=== PATIENT | female | born 1960 | race Caucasian/White ===

== ENCOUNTER 2021-01-19 15:54 | Inpatient (IN) | payer OTHER ==
[~2021-01-19] VITALS: Ht 162.6 cm; Wt 82.6 kg
--- NOTE | ~2021-01-19 | CON ---
[facility] [address] [place] [address] CONSULTATION Name: CYRUS AMEZCUA Room: [address] IN M.R.#: [id number] Admission: 01/19/21 Attend Phys: Rahul Walsh MD Discharge: Date of : 56 Report #: [id number] THIS REPORT FOR: cc: AKI DC MD, CHADWICK MD Khosla, Parveen K. MD ~ DATE OF CONSULTATION: 01/19/2021 HISTORY OF PRESENT ILLNESS: A 61-year-old female patient who presented with a code stroke. She had a sudden onset of the right upper and right lower extremity weakness. She came to Emergency Room and after talking to her about the indication, potential complication and alternatives of tPA, the emergency room physician started the patient on tPA. CT scan was negative and as I understand from him, there was no contraindication for tPA. When I saw this patient, she said she was already trying to improve some, but she was still significantly weak on the right side. Her sensation was intact. REVIEW OF SYSTEMS: Somewhat confusing because she has a history of hypertension. She takes her blood pressure, but she is not sure how controlled her blood pressure is. She does take metformin; she takes Depakote and Remeron, but apparently that is because of anxiety and depression. She does not feel she was depressed here. A 14-point review of systems was carried out, but except for diabetes, hypertension, anxiety and depression, it was unremarkable. PAST MEDICAL HISTORY: Positive for hypertension. FAMILY HISTORY: Unremarkable. SOCIAL HISTORY: She smokes. She does not drink alcohol on a regular basis. PHYSICAL EXAMINATION: NEUROLOGICAL: She was alert and responsive. Her speech was intact. She thinks her memory is at her baseline. Cranial nerve examination 2-12 I believe was unremarkable. I did not see any facial palsy. She was definitely weak in the right upper and right lower extremity. She was able to move it against resistance, but she was weak. Her sensation looks intact and reflexes look symmetrical. There is no carotid bruit in this patient. CARDIORESPIRATORY: Unremarkable. VITAL SIGNS: Blood pressure is 151/79, temperature 97.2, pulse 91, respirations 17. LABORATORY DATA: White count is 6.8. IMPRESSION: This patient's symptoms were suggestive of possible small vessel cerebrovascular accident. I discussed with the [place] [address] CONSULTATION Name: CYRUS AMEZCUA Room: [address]#: [id number] Admission: 01/19/21 Attend Phys: Rahul Walsh MD Discharge: Date of : 56 Report #: [id number] presumptive at the moment. She has already been explained the indication, potential complication and alternatives. I reviewed her imaging studies and subsequently we got a CT angiogram done and they were basically unremarkable. We will get an MRI done tomorrow. She has shown no evidence of any hemorrhage. I discussed with her in detail the plan. More than 50 minutes of time was spent taking care of this patient today and majority was spent counseling and coordinating, reviewing her imaging studies and records. By: 02 Psheila Gregorio MD /nt
[2021-01-19 16:07] LABS: ABSOLUTE BASOPHILS 0.1 thou/uL (0.0-0.2); ABSOLUTE EOSINOPHILS 0.1 thou/uL (0.0-0.7); ABSOLUTE LYMPHOCYTES 2.7 thou/uL (0.8-5.3); ABSOLUTE MONOCYTES 0.7 thou/uL (0.0-1.2); ABSOLUTE NEUTROPHILS 3.3 thou/uL (1.6-8.1); BASOPHILS 1.1 %; EOSINOPHILS 1.3 %; HEMATOCRIT 38.9 % (37.0-47.0); HEMOGLOBIN 13.5 gm/dL (12.0-15.0); LYMPHOCYTES 39.1 %; MCH 33.3 pg (26.0-34.0); MCHC 34.7 g/dL (28.0-37.0); MCV 95.9 fL (80.0-100.0); MONOCYTES 10.6 %; MPV 7.6 fl. (7.2-11.1); NUCLEATED RBCS 0 /100WBC; PLATELET COUNT* 247 thou/uL (150-400); POLYS 47.9 %; RBC 4.05 mil/uL (4.20-5.00); RDW-CV 14.9 % (10.5-14.5); WBC 6.8 thou/uL (4.0-11.0)
[2021-01-19 16:18] LABS: CALCIUM 8.8 mg/dL (8.5-10.1); POTASSIUM 3.3 mmol/L (3.5-5.1)
[2021-01-19 16:24] LABS: ALBUMIN 2.7 g/dL (3.4-5.0); TOTAL BILIRUBIN 0.3 mg/dL (<0.1-1.0); TOTAL PROTEIN 6.2 g/dL (6.4-8.2)
[2021-01-19 16:41] VITALS: BP 142/81
[2021-01-19] MEDS ORDERED: METFORMIN HCL500 M3 PO (16:44)
[2021-01-19] MEDS ORDERED: DIVALPROEX SOD500 MG PO (16:45)
--- NOTE | 2021-01-19 16:45 | EKG ---
[place] [address] ELECTROCARDIOGRAM REPORT Name: CYRUS AMEZCUA Room: [place] [address] ADM IN .R.#: [id number] Admission: 01/19/21 Attend Phys: Rahul Walsh, Discharge: Date of : 56 Date of Service: 01/19/21 1617 Report #: [id number] THIS REPORT FOR: //name// [facility] ED Test Date: 2021-01-19 Test Time: 16:17:20 Pat Name: CYRUS AMEZCUA Department: Room: [facility] Gender: F Cath Lab Radiological Technologist: NICCI : 1960 Requested By: Emil Horne Order Number: [id number] MD: Eugenio Judd Measurements Intervals [place] Rate: 87 P: 36 RI: 122 QRS: 28 QRSD: 85 T: 18 QT: 397 QTc: 478 Interpretive Statements Sinus rhythm Low voltage, extremity leads Borderline prolonged QT interval No previous ECG available for comparison Electronically Signed On 01-19-2021 16:45:33 CDT by Eugenio Judd [email or web address] <ELECTRONICALLY SIGNED> By: Eugenio Judd MD, FACC 01/19/21 1645 1617 1617 Eugenio Judd MD, FAC /EPI
[2021-01-19] MEDS ORDERED: MINIPRESS2 MG PO (16:46)
[2021-01-19] MEDS ORDERED: OLANZAPINE15 MG PO (16:46)
[2021-01-19] MEDS ORDERED: REMERON15 M2 PO (16:46)
[2021-01-19] MEDS ORDERED: HYDROXYZINE PAM50 MG PO (16:46)
--- NOTE | 2021-01-19 16:56 | NUR ---
SEE CODE STROKE FLOWSHEET AND IV TPA FLOW SHEET FOR FURTHER DOCUMENTATION
[2021-01-19 18:06] VITALS: BP 151/79
[2021-01-19] MEDS ORDERED: LISINOPRIL20 MG PO (21:15)
[2021-01-19] MEDS ORDERED: PRAVACHOL 20 MG20 M1 PO (21:17)
[2021-01-19] MEDS ORDERED: ZOLOFT50 M1 PO (21:21)
[2021-01-19] MEDS ORDERED: PROAIR HFA8.5 GM INH (21:23)
[2021-01-20] VITALS (20 sets, daily range): BP systolic 131–172; BP diastolic 55–141
[2021-01-20 03:27] LABS: ABSOLUTE EOSINOPHILS 0.1 thou/uL (0.0-0.7); ABSOLUTE LYMPHOCYTES 2.3 thou/uL (0.8-5.3); ABSOLUTE MONOCYTES 0.7 thou/uL (0.0-1.2); ABSOLUTE NEUTROPHILS 3.4 thou/uL (1.6-8.1); BASOPHILS 0.5 %; EOSINOPHILS 1.1 %; HEMATOCRIT 33.9 % (37.0-47.0); HEMOGLOBIN 11.6 gm/dL (12.0-15.0); LYMPHOCYTES 35.5 %; MCH 33.2 pg (26.0-34.0); MCHC 34.2 g/dL (28.0-37.0); MCV 96.8 fL (80.0-100.0); MONOCYTES 11.2 %; MPV 7.7 fl. (7.2-11.1); NUCLEATED RBCS 0 /100WBC; PLATELET COUNT* 221 thou/uL (150-400); POLYS 51.7 %; RDW-CV 15.2 % (10.5-14.5); WBC 6.6 thou/uL (4.0-11.0)
[2021-01-20 03:33] LABS: CREATININE 0.7 mg/dL (0.6-1.3)
[2021-01-20 03:38] LABS: CALCIUM 6.5 mg/dL (8.5-10.1); CHOLESTEROL 141 mg/dL (<200); HDL CHOLESTEROL 40 mg/dL (>40); LDL CHOLESTEROL 78 mg/dL (<100); TC:HDL 3.5 Ratio (Not establshd); TRIGLYCERIDE 116 mg/dL (<150); VLDL 23 mg/dL (<40)
[2021-01-20 03:39] LABS: POTASSIUM 2.6 mmol/L (3.5-5.1)
[2021-01-20 03:40] LABS: SERUM ASSESSMENT Clear
--- NOTE | 2021-01-20 07:50 | NUR ---
PT DID WELL WITH TPA MONITORING. NIH WAS A 2 @ BEGINNING OF SHIFT AND A 0 BY 2100. HOME MEDS REVIEWED AND VERIFIED. OBTAINED DPOA PAPERWORK FROM SISTER AND PUT ON CHART. NURSING ADMISSION AND ASSESSMENT COMEPLETE. PT ABLE TO SWALLOW WELL. NOTIFIED. DIET ORDERED AND LUNCHBOX GIVEN TO PT. PT ABLE TO REST OFF AND ON THROUGH THE NIGHT. NIH REMAINED A 0. TYLENOL GIVEN FOR LEFT LEG PAIN FROM HER FALL YESTERDAY. FILLED OUT MRI QUESTIONAIRE WITH PT. REPORT GIVEN TO DAY RN.
[2021-01-20 11:02] LABS: POTASSIUM 4.7 mmol/L (3.5-5.1)
[2021-01-20 11:03] LABS: CALCIUM 8.9 mg/dL (8.5-10.1)
--- NOTE | 2021-01-20 12:11 | NUR ---
Diet Aide: Met with patient in ICU. Reviewed current symptoms and plan for CT this afternoon. patient reports improvement in RUE weakness. Continues to have discomfort Right lower back from fall at home when stroke symptoms started. Continue to follow.
--- NOTE | 2021-01-20 13:53 | 2DMMODE ---
[place] [address] 2 D/M-MODE ECHOCARDIOGRAM Name: CYRUS AMEZCUA Room: [address] ADM IN [facility]#: [id number] Admission: 01/19/21 Attend Phys: Rahul Walsh, Discharge: Date of : 56 Date of Service: 01/20/21 1353 Report #: [id number] THIS REPORT FOR: cc: AKI DC MD, CHADWICK MD Holkins, John M. MD [facility] ~ APPROVED REPORT Study performed: 01/20/2021 10:34:55 EXAM: Comprehensive 2D, Doppler, and color-flow Echocardiogram Patient Location: In-Patient Room #: [facility] Status: routine BSA: 1.84 HR: 85 bpm BP: 151/79 mmHg Rhythm: NSR Other Information Study Quality: Good Indications CVA/TIA Echo Enhancing Agent Indication: Rule out Shunt Agent(s) / Amount(s) Used: Agitated Saline 10 cc 2D Dimensions IVSd: 9.20 (7-11mm) LVOT Diam: 18.65 (18-24mm) LVDd: 37.04 mm PWd: 9.02 (7-11mm) Ascending Ao: 29.18 (22-36mm) LVDs: 24.76 (25-40mm) Aortic Root: 30.46 mm Volumes Left Atrial Volume (Systole) LA ESV Index: 13.10 mL/m2 Aortic Valve AoV Peak Martín.: 1.47 m/s AO Peak Gr.: 8.68 mmHg LVOT Max P.87 mmHg AO Mean Gr.: 4.56 mmHg LVOT Mean P.44 [place] [address] 2 D/M-MODE ECHOCARDIOGRAM Name: CYRUS AMEZCUA Room: [address] IN ..#: [id number] Admission: 01/19/21 Attend Phys: Rahul Walsh, Discharge: Date of : 56 Date of Service: 01/20/21 1353 Report #: [id number] LVOT Max V: 1.40 m/s AO V2 VTI: 28.95 cm LVOT Mean V: 0.84 m/s DARLYN (VTI): 2.62 cm2 LVOT V1 VTI: 27.76 cm AI Gregory: 3.33 m/s2 AI PHT: 387.05 ms Mitral Valve E/A Ratio: 1.02 MV Decel. Time: 184.40 ms MV E Max Martín.: 0.89 m/s MV PHT: 53.48 ms MVA (PHT): 4.11 cm2 TDI E/Lateral E': 7.42 E/Medial E': 9.89 Medial E' Martín.: 0.09 m/s Lateral E' Martín.: 0.12 m/s Pulmonary Valve PV Peak Martín.: 0.94 m/s PV Peak Gr.: 3.57 mmHg Left Ventricle The left ventricle is normal size. There is normal LV segmental wall motion. There is normal left ventricular wall thickness. Left ventricular systolic function is normal. The left ventricular ejection fraction is within the normal range. LVEF is 60-65%. The left ventricular diastolic function is normal. Right Ventricle The right ventricle is normal size. The right ventricular systolic function is normal. Atria The left atrium size is normal. The interatrial septum is intact with no evidence for an atrial septal defect. The right atrium size is normal. Aortic Valve The aortic valve is normal in structure. Mild aortic regurgitation. There is no aortic valvular stenosis. Mitral Valve Mild mitral annular calcification. There is no mitral valve regurgitation noted. No evidence of mitral valve stenosis. [place] [address] 2 D/M-MODE ECHOCARDIOGRAM Name: CYRUS AMEZCUA Room: [address] IN M.R.#: [id number] Admission: 01/19/21 Attend Phys: Rahul Walsh, Discharge: Date of : 56 Date of Service: 01/20/21 1353 Report #: [id number] The tricuspid valve is normal in structure. Unable to assess PA pressure. Trace tricuspid regurgitation. Pulmonic Valve The pulmonary valve is normal in structure. There is no pulmonic valvular regurgitation. Great Vessels The aortic root is normal in size. IVC is normal in size and collapses >50% with inspiration. Pericardium There is no pericardial effusion. <Conclusion> The left ventricle is normal size. There is normal left ventricular wall thickness. Left ventricular systolic function is normal. The left ventricular ejection fraction is within the normal range. LVEF is 60-65%. The right ventricle is normal size. The left atrium size is normal. The aortic valve is normal in structure. Mild aortic regurgitation. There is no aortic valvular stenosis. Mild mitral annular calcification. There is no mitral valve regurgitation noted. The tricuspid valve is normal in structure. IVC is normal in size and collapses >50% with inspiration. There is no pericardial effusion. There is normal LV segmental wall motion. The interatrial septum is intact with no evidence for an atrial septal defect. <ELECTRONICALLY SIGNED> By: Noel Warren MD, FACC 01/20/21 1353 1353 1353 Noel Warren MD, FACC /INF
--- NOTE | 2021-01-20 14:54 | NUR ---
THE PATIENT TRANSFERRED TO [facility]. THIS NURSE AGREES WITH PREVIOUS NURSE ASSESSMENT.
--- NOTE | 2021-01-20 16:40 | NUR ---
Pt from [facility]. CVA, TPA given. Therapies to see. Anticipate dc in 1-2 days. Continues to smoke. NIH improved. Plan HH at dc. A&O. Independent. CM left for Pt's sister, await call back
--- NOTE | 2021-01-20 20:55 | NUR ---
TRANSFERED TO TELE.
[2021-01-21] VITALS (7 sets, daily range): BP systolic 109–154; BP diastolic 78–92
--- NOTE | 2021-01-21 04:26 | NUR ---
ASSUMED CARE OF PT AFTER REPORT AT 1930. PT A&OX4. VSS. PHYSICAL ASSESSMENT COMPLETED AND CHARTED. PT ON RA. PT TRACING SR ON TELE. PT WITH JUSTIN TO DEPENDENT DRAIN. NIH CHARTED. PT DENIES ANY PAIN. FALL PRECAUTIONS IN PLACE. CALL LIGHT WITHIN REACH.
[2021-01-21 07:08] LABS: GLYCOHEMOGLOBIN (HGB A1C) 5.3 % (4.8-5.6)
--- NOTE | 2021-01-21 10:19 | NUR ---
ASSUMED CARE OF PT AT 0730. PT A&0X4, COMPLAINS OF PAIN TO BACK-TREATED WITH PRN TYLENOL WITH PARTIAL RELIEF. NIH 0 CHARTED. TRACING SR ON THE MANAGER EDITORIAL. ON RA SAT UPPER 90'S. DENIES ANY SHORTNESS OF BREATH. ANDERSON CATHETER TO DEPENDENT DRAINAGE. PT UP WITH 1 ASSSIT TO [facility] [place]. PT GOAL FOR TODAY IS WORK WITH THERAPIES, REHAB AND NEURO CONSULT IN PLACE AND DC ANDERSON CATHETER AND VOID WITHOUT DIFFICULTIES. AM ASSESSMENT CHARTED. MEDICATIONS PER JUN. PT REPOSITIONS SELF WITH REMINDERS. HOURLY ROUNDING OBSERVED. BED IN LOW POSITION. CALL LIGHT WITHIN REACH. WILL CONTINUE PLAN OF CARE.
--- NOTE | 2021-01-21 11:54 | NUR ---
Pest Control Service Representative: Follow visit with patient today. She is in good spirits and hoping to go home. Understands need to start Aspirin , discussed administration and usage for stroke prevention. Already on Statin and will continue this therapy. NIHSS is 0 today, reports getting up to bathroom and would like the mendoza removed. Reviewed stroke signs and symptoms using BEFAST pneumonic. Understands calling 911.
--- NOTE | 2021-01-21 12:58 | NUR ---
PLAN OF CARE: PHYSICIAN INFORMS THAT THE PT MAY BE MEDIALLY STABLE TO D/C PENDING PT/OT EVALS. PT/OT EVALS WILL ASSIST IN DETERMINING PLAN OF CARE AND HOME WITH HH VS SNF FOR THE PT. CM WILL REMAIN AVAILABLE TO ASSIST AND FOLLOW FOR CM D/C PLANNING NEEDS.
[2021-01-21] MEDS ORDERED: ASPIRIN325 PO (14:17)
[2021-01-21] MEDS ORDERED: PRAVACHOL 20 MG20 M1 PO (14:21)
--- NOTE | 2021-01-21 16:09 | NUR ---
DISCHARGE ORDERS RECEIVED. DISCHARGE INSTRUCTIONS, CARE NOTES, E SCRIPTS AND FOLLOW UP APPTS GIVEN TO PT. PT COMMUNICATES UNDERSTANDING OF DISCHARGE TEACHING. IV AND INSURANCE CLAIMS CLERK REMOVED. ANDERSON DC'D AND PT VOIDING WITHOUT DIFFICULTY.PT DISCHARGED WITH ALL BELONGINGS AND PAPERWORK VIA WHEELCHAIR WITH NURSING STAFF TO SISTER OWN PERSONAL VEHICLE. PT DISCHARGED TO HOME WITH HOME HEALTH.
== END 2021-01-21 16:11 | disposition home health service (06) | DRG 62 ==
LOC: M.ERS 15:54 → M.TBA-ER 16:32 → M.ICU 16:32 → M.2W 01-20 14:08
PROVIDERS: Family Medicine; ADMIT Internal Medicine; ATTEND Internal Medicine
DX: I63.9 Cerebral infarction, unspecified (principal); G81.91 Hemiplegia, unspecified affecting right dominant side; E44.1 Mild protein-calorie malnutrition; Z20.822 Contact with and (suspected) exposure to COVID-19; I10 Essential (primary) hypertension; F17.210 Nicotine dependence, cigarettes, uncomplicated; E11.9 Type 2 diabetes mellitus without complications; F32.9 Major depressive disorder, single episode, unspecified; F41.9 Anxiety disorder, unspecified; Z68.31 Body mass index [BMI] 31.0-31.9, adult; Z88.8 Allergy status to other drugs, medicaments and biological substances